=== PATIENT | male | born 1930 | race Caucasian/White ===

== ENCOUNTER → 2017-05-15 | Outpatient (CLI) | payer OTHER ==
[~2017-05-15] MED LIST: ATOR10TA9 PO; CHOL2000 PO; LISI-170 PO
== END | disposition home or self-care (01) ==
LOC: RAD 12:16
PROVIDERS: ATTEND Registered Nurse
DX: I65.23 Occlusion and stenosis of bilateral carotid arteries (principal); G31.89 Other specified degenerative diseases of nervous system
CPT/HCPCS: 70551; 93880

== ENCOUNTER 2017-11-24 12:00 | Inpatient (IN) | payer OTHER ==
[~2017-11-24] VITALS: Ht 177.8 cm; Wt 78.9 kg
[2017-11-24] MEDS ORDERED: MEMA1CAP2 PO (12:33)
[2017-11-24 12:36] LABS: MEAN CORPUSCULAR HEMOGLOBIN 32.6 pg (27.5-34.5); MEAN CORPUSCULAR HGB CONC 33.8 g/dL (33.2-36.2); MEAN CORPUSCULAR VOLUME 96.3 fL (81-97); MEAN PLATELET VOLUME 8.1 fL (7.4-10.4); PLATELET COUNT 246 x10^3/uL (130-400); RED BLOOD COUNT 5.24 x10^6/uL (4.38-5.82); RED CELL DISTRIBUTION WIDTH 13.7 % (9.4-14.8)
[2017-11-24 12:47] LABS: ALANINE AMINOTRANSFERASE 17 U/L (12-78); ALBUMIN 3.6 g/dL (3.4-5.0); ANION GAP 9 mmol/L (5-15); CALCIUM 8.4 mg/dL (8.5-10.1); CHLORIDE 114 mmol/L (98-107)
[2017-11-24 12:50] LABS: ALKALINE PHOSPHATASE 88 U/L (45-117); BILIRUBIN,TOTAL 0.8 mg/dL (0.2-1.0); TOTAL PROTEIN 7.2 g/dL (6.4-8.2)
[2017-11-24 12:51] LABS: ACETAMINOPHEN < 2 mcg/mL (10-30); SALICYLATE LEVEL < 1.7 mg/dL (2.8-20.0)
[2017-11-24] MEDS ORDERED: SODIUM CHLORIDE 0.9% 1,000ML IVBOLUS ONE (13:00)
[2017-11-24 13:21] LABS: MD YES
[2017-11-24 13:22] LABS: BAND#(MANUAL) 2.03 x10^3/uL; BANDS%(MANUAL) 14 % (0-7); LYMPH#(MANUAL) 0.29 x10^3/uL (1-3.4); LYMPHS% (MANUAL) 2 % (22-44); MONOS#(MANUAL) 0.87 x10^3/uL (0.3-2.7); MONOS% (MANUAL) 6 % (2-9); SEG#(MANUAL) 11.31 x10^3/uL (1.8-6.8); SEGS% (MANUAL) 78 % (42-75)
[2017-11-24 13:23] LABS: <PLATELET ESTIMATE> ADEQUATE; <PLT MORPHOLOGY> NORMAL PLT MORPH; <RBC MORPHOLOGY> NORMAL
[2017-11-24 14:25] LABS: MICROSCOPIC INDICATED
[2017-11-24 14:51] LABS: CULTURE INDICATED? YES
[2017-11-24 19:01] VITALS: BP 120/64
[2017-11-24 19:42] VITALS: BP 116/68
[2017-11-24] MEDS ORDERED: ENALAPRILAT 1.25 MG/ML, 2ML IVPush PRN (20:00)
[2017-11-24] MEDS ORDERED: morphine SULFATE 10 MG/ML, 1ML IVPush PRN (20:00)
[2017-11-24] MEDS ORDERED: POLYETHYLENE GLYCOL 17 GM PACKET PO PRN (20:00)
[2017-11-24] MEDS ORDERED: hydrALAzine 20 MG/ML, 1ML IVPush PRN (20:00)
[2017-11-24] MEDS ORDERED: ACETAMINOPHEN 325 MG TABLET PO PRN (20:00)
[2017-11-24] MEDS ORDERED: CEFTRIAXONE PMX 1GM/50ML 50 ML IV SCH (20:00)
[2017-11-24] MEDS ORDERED: BISACODYL 10 MG SUPP PR PRN (20:00)
[2017-11-24] MEDS ORDERED: ONDANSETRON 2MG/ML, 2ML IVPush PRN (20:00)
[2017-11-24 20:24] LABS: FREE T4 (FREE THYROXINE) 1.04 ng/dL (0.76-1.46); THYROID STIMULATING HORMONE 1.88 mIU/L (0.358-3.740)
[2017-11-24 20:30] LABS: HEMOGLOBIN A1C 5.9 % (4.2-6.3)
[2017-11-24] MEDS: HEPARIN 5,000 UNITS/ML, 1ML SQ SCH (20:54)
[2017-11-24] MEDS: SODIUM CHLORIDE 0.9% 1,000 ML IV SCH (20:54)
[2017-11-24] MEDS ORDERED: ATORVASTATIN 10 MG TABLET PO SCH (21:00)
[2017-11-24 21:23] LABS: CULTURE INDICATED? YES; MICROSCOPIC INDICATED
[2017-11-25 01:13] VITALS: BP 125/72
[2017-11-25] MEDS: SODIUM CHLORIDE 0.9% 1,000 ML IV SCH (04:31)
[2017-11-25] MEDS: HEPARIN 5,000 UNITS/ML, 1ML SQ SCH ×2 (04:32→12:00)
[2017-11-25 05:56] LABS: ALBUMIN 2.9 g/dL (3.4-5.0); ANION GAP 8 mmol/L (5-15); CHLORIDE 116 mmol/L (98-107)
[2017-11-25 05:59] LABS: BASOPHILS % (AUTO) 0 % (0-1); EOSINOPHILS # (AUTO) 0.01 x10^3/uL (0-0.4); EOSINOPHILS % (AUTO) 0 % (1-7); LYMPHOCYTES # (AUTO) 0.49 x10^3/uL (1-3.4); LYMPHOCYTES % (AUTO) 5 % (22-44); MD NO; MEAN CORPUSCULAR HEMOGLOBIN 32.7 pg (27.5-34.5); MEAN CORPUSCULAR HGB CONC 33.5 g/dL (33.2-36.2); MEAN CORPUSCULAR VOLUME 97.8 fL (81-97); MEAN PLATELET VOLUME 8.8 fL (7.4-10.4); MONOCYTES # (AUTO) 0.38 x10^3/uL (0.2-0.8); MONOCYTES % (AUTO) 4 % (2-9); NEUTROPHILS # (AUTO) 9.04 x10^3/uL (1.8-6.8); NEUTROPHILS % (AUTO) 91 % (42-75); PLATELET COUNT 190 x10^3/uL (130-400); RED CELL DISTRIBUTION WIDTH 14.5 % (9.4-14.8)
[2017-11-25 06:02] LABS: ALANINE AMINOTRANSFERASE 15 U/L (12-78); ALKALINE PHOSPHATASE 70 U/L (45-117); BILIRUBIN,TOTAL 0.6 mg/dL (0.2-1.0); CHOL/HDL RATIO 3.7; CHOLESTEROL, TOTAL 138 mg/dL (140-239); CREATININE 2.51 mg/dL (0.7-1.3); HDL CHOL % 27 % (26-37); HDL CHOLESTEROL (DIRECT) 37 mg/dL (40-60); LDL CHOLESTEROL,CALCULATED 86 mg/dL (54-169); LDL/HDL RATIO 2.3 (0.5-3.0); TOTAL PROTEIN 6.2 g/dL (6.4-8.2); TRIGLYCERIDES 77 mg/dL (50-200); VLDL CHOLESTEROL 15 mg/dL (0-25)
[2017-11-25 07:28] VITALS: BP 144/74
[2017-11-25] MEDS ORDERED: CHOLECALCIFEROL 1,000 UNIT TABLET PO SCH (09:00)
[2017-11-25] MEDS ORDERED: LISINOPRIL 20 MG TABLET PO SCH (09:00)
[2017-11-25] MEDS ORDERED: SENNA/DOCUSATE TABLET PO SCH (09:00)
[2017-11-25 09:58] LABS: CLOSTRIDIUM DIFFICILE ANTIGEN NEGATIVE; CLOSTRIDIUM DIFFICILE TOXIN NEGATIVE (Negative)
[2017-11-25] MEDS ORDERED: CEFD300C37 PO (12:39)
[2017-11-25 12:51] VITALS: BP 132/77
== END 2017-11-25 14:39 | disposition home or self-care (01) | DRG 917 ==
LOC: ED 13:46 → EDIP 13:47 → ED 14:06 → 4EST 15:11
PROVIDERS: ADMIT Internal Medicine; ATTEND Internal Medicine
DX: T44.1X1A Poisoning by other parasympathomimetics [cholinergics], accidental (unintentional), initial encounter (principal); G93.41 Metabolic encephalopathy; E87.2 Acidosis; E86.0 Dehydration; N39.0 Urinary tract infection, site not specified; E78.5 Hyperlipidemia, unspecified; G30.9 Alzheimer's disease, unspecified; F02.80 Dementia in other diseases classified elsewhere, unspecified severity, without behavioral disturbance, psychotic disturbance, mood disturbance, and anxiety; I12.9 Hypertensive chronic kidney disease with stage 1 through stage 4 chronic kidney disease, or unspecified chronic kidney disease; I49.3 Ventricular premature depolarization; N18.9 Chronic kidney disease, unspecified; Z90.5 Acquired absence of kidney; Y92.89 Other specified places as the place of occurrence of the external cause
CPT/HCPCS: 36415; 70450; 80053; 80061; 80307; 80329; 81001; 82140; 83036; 83735; 84439; 84443; 85025; 87086; 87324; 93005; 99285; J0696; J1644; G0480; J7030

== ENCOUNTER → 2018-07-14 | Outpatient (CLI) | payer OTHER ==
[~2018-07-14] MED LIST changes: +CEFD300C37 PO; +MEMA1CAP2 PO
== END | disposition home or self-care (01) ==
LOC: CARD 08:36
PROVIDERS: ATTEND Internal Medicine Cardiovascular Disease
DX: F03.90 Unspecified dementia, unspecified severity, without behavioral disturbance, psychotic disturbance, mood disturbance, and anxiety (principal)
CPT/HCPCS: 95819

== ENCOUNTER → 2020-04-14 | Outpatient (CLI) | payer OTHER | END | disposition home or self-care (01) | LOC: CFH 10:43 | PROVIDERS: ATTEND Family Medicine | DX: R31.9 Hematuria, unspecified (principal) | CPT/HCPCS: 82565 ==